=== PATIENT | female | born 1990 | race Two or more races ===

== ENCOUNTER → 2023-11-01 09:08 | Outpatient (REF) | payer BC, SELFPAY ==
[2023-11-01 10:28] LABS: ALT (SGPT) 13 U/L (0-35); AST (SGOT) 20 U/L (14-36); Alkaline Phosphatase 79 U/L (38-126); Blood Urea Nitrogen 11 mg/dl (7-17); Calcium 9.6 mg/dl (8.4-10.2); Carbon Dioxide 22 mmol/L (22-30); Chloride 103 mmol/L (98-107); Glucose 82 mg/dl (70-99); HDL Cholesterol 42 mg/dl; LDL Cholesterol, Calculated 88 mg/dl; Potassium 4.5 mmol/L (3.5-5.1); Sodium 137 mmol/L (135-145); Total Bilirubin 0.7 mg/dl (0.2-1.3); Total Cholesterol 155 mg/dl (50-199); Total Protein 7.1 g/dl (6.3-8.2); Triglyceride 127 mg/dl (10-149); Very Low Density Lipoprotein 25 mg/dl (0-30); eGFR > 60.00
[2023-11-01 11:37] LABS: Free T4 1.35 ng/dl (0.78-2.19); Vitamin D, 25-OH*** 24.7 ng/mL (30-80)
[2023-11-01 11:51] LABS: TSH 1.53 uIU/ml (0.47-4.68)
[2023-11-01 12:13] LABS: Glycohemoglobin (HgbA1c) 5.2 % (4.0-5.6)
[2023-11-03 05:41] LABS: Total T3 (Sendout) 105 ng/dL (80-200)
== END ==
LOC: REG 09:08
PROVIDERS: ATTENDING PHYSICIAN Internal Medicine Endocrinology, Diabetes & Metabolism; FAMILY PHYSICIAN Internal Medicine
DX: E03.9 Hypothyroidism, unspecified (principal); E55.9 Vitamin D deficiency, unspecified; R73.03 Prediabetes; E78.5 Hyperlipidemia, unspecified; K74.01 Hepatic fibrosis, early fibrosis; R53.83 Other fatigue
CPT/HCPCS: 36415; 80053; 80061; 82306; 83036; 84439; 84443; 84480; 84481

== ENCOUNTER → 2023-11-08 14:45 | Outpatient (REF) | payer BC, SELFPAY | LOC: HWRAD 14:45 | PROVIDERS: ATTENDING PHYSICIAN Surgery Plastic and Reconstructive Surgery; FAMILY PHYSICIAN Internal Medicine; REFERRING PHYSICIAN Surgery | DX: K43.9 Ventral hernia without obstruction or gangrene (principal) | CPT/HCPCS: 74177; Q9967 ==

== ENCOUNTER → 2024-01-25 09:44 | Outpatient (REF) | payer BC, SELFPAY ==
[2024-01-25 12:51] LABS: ALT (SGPT) 22 U/L (0-35); AST (SGOT) 24 U/L (14-36); Albumin 4.5 g/dl (3.5-5.0); Alkaline Phosphatase 83 U/L (38-126); Blood Urea Nitrogen 11 mg/dl (7-17); Calcium 9.9 mg/dl (8.4-10.2); Carbon Dioxide 21 mmol/L (22-30); Chloride 107 mmol/L (98-107); Free T3 2.88 pg/ml (2.77-5.27); Free T4 1.32 ng/dl (0.78-2.19); Glucose 64 mg/dl (70-99); HDL Cholesterol 42 mg/dl; LDL Cholesterol, Calculated 80 mg/dl; Potassium 4.5 mmol/L (3.5-5.1); Sodium 138 mmol/L (135-145); Total Bilirubin 0.7 mg/dl (0.2-1.3); Total Cholesterol 144 mg/dl (50-199); Total Protein 7.9 g/dl (6.3-8.2); Triglyceride 113 mg/dl (10-149); Very Low Density Lipoprotein 22 mg/dl (0-30); Vitamin D, 25-OH*** 26.8 ng/mL (30-80); eGFR > 60.00
[2024-01-25 13:03] LABS: TSH 2.17 uIU/ml (0.47-4.68)
[2024-01-25 14:35] LABS: Glycohemoglobin (HgbA1c) 5.1 % (4.0-5.6)
== END ==
LOC: REG 09:44
PROVIDERS: ATTENDING PHYSICIAN Internal Medicine Endocrinology, Diabetes & Metabolism; FAMILY PHYSICIAN Internal Medicine; REFERRING PHYSICIAN Surgery Plastic and Reconstructive Surgery
DX: E03.9 Hypothyroidism, unspecified (principal); E55.9 Vitamin D deficiency, unspecified; R73.03 Prediabetes; E78.5 Hyperlipidemia, unspecified; R74.01 Elevation of levels of liver transaminase levels; R53.83 Other fatigue
CPT/HCPCS: 36415; 80053; 80061; 82306; 83036; 84439; 84443; 84481

== ENCOUNTER → 2024-03-13 08:18 | Outpatient (REF) | payer BC, SELFPAY ==
[2024-03-13 09:35] LABS: % Basophils 0.4 % (0-2); % Eosinophils 1.2 % (0-6); % Immature Granulocytes 1.7 % (0-0.5); % Lymphocytes 28.2 % (20.5-51.1); % Monocytes 5.2 % (1.7-9.3); % Neutrophils 63.3 % (42.2-75.2); Absolute Basophils 0.1 10^3/uL (0-0.2); Absolute Eosinophils 0.2 10^3/uL (0-0.7); Absolute Immature Granulocytes 0.2 10^3/uL (0-0.05); Absolute Lymphocytes 3.4 10^3/uL (1.2-3.4); Absolute Monocytes 0.6 10^3/uL (0.1-0.6); Absolute Neutrophils 7.7 10^3/uL (1.4-6.5); Hematocrit 40.7 % (37.0-47.0); Hemoglobin 13.2 g/dL (12.0-16.0); Mean Corp Hgb Conc. 32.4 g/dL (33.0-37.0); Mean Corpuscular Hgb 26.9 pg (27.0-31.0); Mean Corpuscular Volume 82.9 fL (81.0-99.0); Mean Platelet Volume 11.5 fL (7.4-10.4); Nucleated Red Blood Cells % 0 %; Platelet Count 315 10^3/uL (130-400); Red Blood Cell Count 4.91 10^6/uL (4.20-5.40); White Blood Cell Count 12.1 10^3/uL (4.8-10.8)
[2024-03-13 10:39] LABS: ALT (SGPT) 26 U/L (0-35); AST (SGOT) 28 U/L (14-36); Albumin 4.7 g/dl (3.5-5.0); Alkaline Phosphatase 75 U/L (38-126); Blood Urea Nitrogen 13 mg/dl (7-17); Calcium 10.3 mg/dl (8.4-10.2); Carbon Dioxide 22 mmol/L (22-30); Chloride 106 mmol/L (98-107); Glucose 72 mg/dl (70-99); Potassium 4.5 mmol/L (3.5-5.1); Sodium 139 mmol/L (135-145); Total Bilirubin 0.6 mg/dl (0.2-1.3); Total Protein 7.9 g/dl (6.3-8.2); eGFR > 60.00
== END ==
LOC: RCS 08:18
PROVIDERS: ATTENDING PHYSICIAN Surgery Plastic and Reconstructive Surgery; FAMILY PHYSICIAN Internal Medicine
DX: Z01.818 Encounter for other preprocedural examination (principal)
CPT/HCPCS: 36415; 80053; 85025; 93005

== ENCOUNTER 2024-03-26 06:21 | Day surgery (SDC) | payer SELFPAY, BC ==
[2024-03-26] VITALS (13 sets, daily range): BP systolic 35–126; BP diastolic 64–78; BMI 26.8
--- NOTE | 2024-03-26 08:45 | HP.FOC2 ---
Focused History & Physical
Chief Complaint
HPI:
Chief Complaint: Incisional hernia/umbilical hernia
HPI / Indication for Planned Procedure: Patient is a 33-year-old female recently seen in outpatient surgical evaluation secondary to a known incisional hernia. She has had a history of having undergone 3 previous C-sections most recently in February
2022. CT imaging identified umbilical and lower midline incisional hernias spanning a total vertical length of about 10 cm and horizontal width of 3 to 4 cm just to the left of midline. She presents today for scheduled operative correction of her
symptomatic hernias with concomitant abdominoplasty.
Relevant Past Medical History: Other (History of depression, previous history of UTI)
Relevant Social History: Negative
Relevant Family History: Negative
Relevant Past Surgical History: Positive for ( x 3, wisdom teeth extraction)
Review of Systems
Review of Pertinent Systems: All Systems Negative
Medication
See Medication form for detailed medications: Yes
Medication List (including Herbals & OTC):
magnesium 240 mg PO DAILY 05/16/23
tirzepatide 12.5 mg/0.5 mL subcutaneous pen injector (Mounjaro) 12.5 mg SC QWEEK 03/21/24
Medications Reviewed: Yes
Allergies and Reactions
Patient has Allergies: No
Noted Allergies and Reactions:
Allergy/AdvReac Type Severity Reaction Status Date / Time
No Known Allergies Allergy Verified 03/21/24 15:43
Pertinent Physical Exam
All Other Systems: Negative
Head/Neck: Normal
Lungs: Normal
Heart: Normal
Abdomen: Other (Soft, chronically incarcerated umbilical hernia, infraumbilical hernia down towards the pubic area with asymmetrical swelling towards the left side of midline. Easily reducible. Upper abdominal wall diastasis with excessive lower
abdominal wall skin/pannus)
Extremities: Normal
Neurological: Normal
Diagnosis / Assessment
33-year-old female with chronically incarcerated umbilical hernia, incisional hernia, rectus diastases and excess skin of the abdominal wall presenting today for scheduled operative correction of her hernias with concomitant abdominoplasty
Plan / Procedure
Open repair of umbilical/incisional hernias with mesh (retrorectus)
Anesthesia/Sedation to be done by Anesthesia Provider: Yes
[2024-03-26] MEDS: TYLENOL 1000 MG PO ×2 (10:41→20:32)
[2024-03-26] MEDS: NORMOSOL-R 1000 IV ×2 (10:48→19:31)
[2024-03-26 11:02] LABS: HCG, Urine Qualitative Screen Negative
--- NOTE | 2024-03-26 11:27 | W.SUR.PREOP ---
Pre-Operative Surgical Note
-
I have examined this patient prior to the performance of the scheduled procedure.
The patient's condition is unchanged from the time of the current History and
Physical and the patient is able to undergo the scheduled procedure.
--- NOTE | 2024-03-26 14:55 | W.IMMPOSTOP ---
Addendum entered and electronically signed by Jayden Saunders MD 03/26/24 15:10:
#[id number]
Original Note:
Surgical Immed Post Op Note
-
Primary Surgeon: Chip
Assisting Surgeon: Noman
Darryn LANDON
Pre-op Diagnosis: Incisional hernia/umbilical hernia -10 cm
Rectus diastasis
Excessive skin of the abdominal wall
Post-op Diagnosis: Incisional/umbilical hernia -9 cm
Rectus diastasis
Excessive skin of the abdominal wall
Procedure Performed: Open retrorectus mesh repair incisional/umbilical hernias
Anesthesia Type: GETA + tap block
Specimen / Cultures: None
Estimated Blood Loss: 16 mL
Complications: None immediate
Operative Findings: Significant excessive skin of the abdominal wall. 4 to 5 cm rectus diastasis. Umbilical hernia 2 cm fascial defect; incisional hernia 4 cm fascial defect. Total vertical length of hernias encompassing 9 cm including fascial
bridge between umbilical hernia defect and incisional hernia defect. Retrorectus mesh repair. Closure of posterior sheath 2-0 PDS STRATAFIX spiral x 2. Bard soft mesh 15 cm wide by 23 cm vertically. Mesh suture fixated to Dean's ligament on
right and left side with simple interrupted 2-0 Prolene suture. Anterior rectus sheath fascia closed with running continuous #1 PDS strata fix symmetric suture.
Please see Dr. Tineo's operative report for full details regarding abdominoplasty/diastases correction.
--- NOTE | 2024-03-26 18:09 | W.IMMPOSTOP ---
Surgical Immed Post Op Note
-
Primary Surgeon: KARLA Tineo MD
Assisting Surgeon:
Pre-op Diagnosis: Lipodystrophy, excessive skin and subcutaneous tissue, diastasis rectii, hernia
Post-op Diagnosis: Same
Procedure Performed: Lipoabdominoplasty with diastasis repair, neoumbilicoplasty
Anesthesia Type: General
Specimen / Cultures: None
Estimated Blood Loss: 150cc
Complications: None
Operative Findings: As expected
--- NOTE | 2024-03-26 18:11 | OR.RPT ---
Operative Report
Operative Report
date of surgery: 03/26/2024
Surgeon: KARLA Tineo MD
Preoperative diagnosis: Lipodystrophy, rectus diastases, ventral hernia, excessive skin and subcutaneous tissue
Postoperative diagnosis: Same
Procedure:
1. Insurance based Panniculectomy
2. Rectus plication, diastases repair
3. liposuction to the lateral flanks
4. Jag umbilical plasty
anesthesia: General
Complications: None
EBL: 100 cc
Indications for procedure: Patient is a 33-year-old female with a history of at bedtime, prior , ventral hernia, massive weight loss, overhanging abdominal pannus. She presented for concerns over the appearance of her abdomen and desired
body contouring as well as abdominal hernia repair. CT scan was performed was confirmed she had both a umbilical and infraumbilical ventral hernia at the midline. Plan was made for concurrent open hernia repair. She obtained approval for
insurance based panniculectomy to remove excessive skin of the lower abdomen. Furthermore she desired cosmetic rectus plication and liposuction to the flanks with jag umbilicoplasty. conversation about the risk and benefits were had and included
the risk of hematoma, seroma, recurrent skin laxity, recurrent hernia, delayed wound healing, infection and DVT PE. she desired to proceed and consented accordingly.
Procedure in detail: Patient was identified preoperatively and the infraumbilical panniculectomy was marked out with extension to the lateral flanks. Normal anatomical landmarks were delineated for contouring, midline plication, creation of a new
umbilicus. All questions were answered and consents were confirmed. Patient was then taken back to the operating placed supine on the table. Anesthesia was induced endotracheal tube was placed. Timeout for patient safety was performed after
prepping and draping the patient in the usual sterile fashion. It was confirmed that preoperative antibiotics administered bilateral SCDs were in place. Procedure began with both Dr. Saunders from general surgery and myself making the inferior
incision and dissecting out the hernia sac. Dissection continued along the abdominal wall fascia delineating 2 ventral defects. Dissection continued superiorly to the level of the xiphoid raising large skin flaps. At this point Dr. Saunders
performed an open retrorectus mesh repair of the hernias. His operative report will be dictated separately. After completion of the hernia repair, I reentered the procedure and performed a midline plication. This was done with a series of #1 and
0 PDS suture. This was required in the midline as well as right lower quadrant due to eventration or bulge. Following this I performed bilateral tap blocks using dilute half percent Marcaine. The skin was then redraped with the patient flexed at
the waist and the panniculectomy was performed after remarking the superior extent of skin excision. 2 drains were placed along the abdominal wall fascia. The wound was then closed in layers with 2-0 Vicryl followed by INSORB stapler and 3-0
Monocryl. Prior to closure the new position of the umbilicus was marked out. The prior umbilicus was excised with the panniculectomy given the skin redundancy. The new umbilicus was performed in a Saad fashion using a butterfly shaped X
incision at the level of the ASIS bilaterally. The skin flaps were then affixed to the abdominal wall using 4-0 PDS suture. 5-0 fast gut were placed superficially. Following closure tumescent solution, 2 L, consisting of 1 L of normal saline and
50ml 1% lidocaine with 1 amp of epi were distributed over the anterior abdominal wall and flanks. Liposuction was then performed for contouring. A total of 700 cc of Lipo aspirate was removed. Patient tolerated the procedure well was performed
without complication. All counts were correct at the end the case. The dressings were placed consisting of bacitracin, dry gauze, Tegaderm. Abdominal binder was placed overlying. She was extubated taken the PACU for further care.
[2024-03-26] MEDS: DILAUDID 0.25 MG IV (19:15)
--- NOTE | 2024-03-26 20:15 | PTCARENOTE ---
Pt. arriving to [facility] via bed from PACU around 1999 and surgical sites checked with offgoing PACU nurse at the bedside. Pt. A&Ox3, drowsy but arousable to verbal stimuli, in NAD, even and unlabored breathing on 4L NC, and VSS. Pt. oriented to room
and unit policies, call light within reach, belongings within reach, bed locked and in lowest position, side rails in place, and questions answered at time of assessment. Pt. set up to eat clear liquid tray. Will continue to monitor.
--- NOTE | 2024-03-26 20:24 | SUR.PHASEI ---
1930 - patient initially sedate in pacu - visited by Dr Tineo and . dressing checked Q15min - minimal serosanguineous drainage on low horizontal dressing , umbilical dressing dry and intact. binder kept in place, SNEHAL's emptied for
serosanguineous drainage, Nava discontinued on arrival to PACU per Dr Tineo. medicated x1 with dilaudid 0.25mg for pain - with relief. patient sensitive to dilaudid with drop in sats. keep O2 on at this time. transfered to [address] [place] [address] when bed
available. handoff at bedside.
[2024-03-26] MEDS: MYLICON 80 MG PO (20:32)
[2024-03-26] MEDS: ULTRAM 100 MG PO (20:41)
[2024-03-26] MEDS: VALIUM 5 MG PO (20:42)
[2024-03-26] MEDS: ANCEF 5 IV (23:09)
[2024-03-27] MEDS: TYLENOL 1000 MG PO ×3 (02:02→13:13)
[2024-03-27] MEDS: MYLICON 80 MG PO (02:02)
[2024-03-27] MEDS: ANESTHETIC LOZENGE 1 LOZENGE PO (02:16)
[2024-03-27] MEDS: ULTRAM 100 MG PO ×2 (02:35→08:48)
[2024-03-27 03:00] VITALS: BP 99/63
[2024-03-27] MEDS: NORMOSOL-R 1000 IV (05:31)
[2024-03-27] MEDS: ANCEF 5 IV (06:11)
[2024-03-27 07:49] VITALS: BP 110/67
--- NOTE | 2024-03-27 08:02 | W.PN.GS2 ---
Addendum entered and electronically signed by Jayden Saunders MD 03/27/24 11:48:
Patient seen in follow-up with residents. Agree with documented progress note.
Patient reports adequate pain control postoperatively. No nausea. Tolerated some breakfast.
AF VSS -mild symptomatic hypotension overnight improved
ABD: Abdominal binder in place, plastics just evaluated the surgical sites so did not remove. JPs with serosanguineous fluid
Assessment/plan: 33-year-old female POD #1 status post open retrorectus mesh repair umbilical/incisional hernias
Multimodal pain control options
Okay for discharge from surgical standpoint, advised regarding dietary resumption postoperatively
Patient will be initially following up with plastics for drain management and incision check
Follow-up with myself in 2 to 4 weeks for general surgical postop
Original Note:
Today's Communication / Plan
-
Full Code
Assessment / Plan
-
ASSESSMENT:
POD#1 Status Post Incisional / Umbilical Hernia Repair W. Rectus Diastasis Repair and Abdominoplasty.
PLAN:
Slowly advance diet/ small/frequent portions
Continue to monitor Bilateral SNEHAL Drainage - Quantity/Quality
F/U Outpt. W. Plastics team in 2-4 Weeks
Stable for D/C Home per the Plastics Team
Subjective Data
-
Date of Service: March 27, 2024
Patient was seen/evaluated this morning at bedside.
No acute O/N Events
Feeling well/No complains
Pt stated pain is well-controlled, 12/25 this morning
Currently taking PRN-Pain analgesia medications
Passing Flatus / Denies any BM at this time
No N/V
Objective Data
-
Intake and Output
03/26/24 03/27/24 03/28/24
06:59 06:59 06:59
Intake Total 840 / 840
Output Total 540 / 540
Balance 300 / 300
Intake:
Oral fluids 640 / 640
IV fluids (Total) 200 / 200
normosol 200 / 200
Output:
Drain Output (Total) 440 / 440
Abdomen Awais-Morocho 195 / 195
Left Abdomen Awais-Morocho 245 / 245
Urine, Nava 100 / 100
Other:
Number of approximated MODERATE 2
amounts of urine
Vital Signs
Temp Pulse Resp BP Pulse Ox
36.6 C 66 18 110/67 97
03/27/24 07:49 03/27/24 07:49 03/27/24 07:49 03/27/24 07:49 03/27/24 07:49
Physical Exam
-
VITALS: Stable
No fevers nor increase in HR O/N
Mild transient Hypotension of 99/63 was noted around 3 AM today (Currently Resolved BP - 110/67 at 7 AM)
SPO2 -97% at R.A.
RR - 18
HR - 67
PHYSICAL:
AAOx3 / NAD
Abdominal Binder in Place
L-SNEHAL Drain ~ Sanguinous 25cc this morning / ~ 200cc O/N (Per Patient)
ABD - Soft/Non-Distended, No Rebound, Rigidity or Guarding
--- NOTE | 2024-03-27 08:44 | W.PN.PLAS ---
Today's Communication
-
discharge to home
Progress Note
Subjective Data
doing well, denies shortness of breath
Subjective: Tolerating Regular Diet, Ambulatory, Nava Removed and Patient Voided
Objective Data
Vital Signs
Temp Pulse Resp BP Pulse Ox
97.8 F 66 18 110/67 97
03/27/24 07:49 03/27/24 07:49 03/27/24 07:49 03/27/24 07:49 03/27/24 07:49
physical exam: No acute distress
No increased work of breathing
Abdominal binder in place
SNEHAL drain serosanguineous with appropriate output
Incision intact with dressings in place
No undrained fluid collections
Intake and Output
03/26/24 03/27/24 03/28/24
06:59 06:59 06:59
Intake Total 840 / 840
Output Total 540 / 540
Balance 300 / 300
Intake:
Oral fluids 640 / 640
IV fluids (Total) 200 / 200
normosol 200 / 200
Output:
Drain Output (Total) 440 / 440
Abdomen Awais-Morocho 195 / 195
Left Abdomen Awais-Morocho 245 / 245
Urine, Nava 100 / 100
Other:
Number of approximated MODERATE 2
amounts of urine
Assessment / Plan
status post open hernia repair with retro rectus mesh placement, fascial plication, Lipo abdominoplasty
doing well
Tolerating regular diet
Ambulatory
Voiding
Pain well-controlled on p.o. meds
Drain teaching
Abdominal binder
SCDs
--- NOTE | 2024-03-27 08:50 | W.DCSUMMARY ---
Discharge Summary
Discharge Data
Date of Admission: 03/26/24
Date of Discharge: 03/27/24
-
Pending Results: No
Hospital Course
s/p hernia repair and abdominoplasty
Routine postoperative course
Regular diet, pain well controlled, voiding, ambulatory on discharge.
Home with VN and short term follow up
Discharge Plan
-
Patient Disposition: Home (Routine Discharge)
Discharge Diagnosis/Procedures: s/p open hernia repair and abdominoplasty
Condition: Good
Diet: As tolerated
Activity: No strenuous activity
Driving Restrictions: Not until seen by your Dr
Bathing Restrictions: OK to Shower
Other Services: VN
Wound Care: Soap and water, aquaphor, dry ABD pads, abdominal binder. Remove dressing if wet.
Referrals:
UNKNOWN - PT NOT,INTERVIEWE [Family Provider] -
Prescriptions:
New
tramadol 50 mg Tablet
50 - 100 mg PO Q6HPRN PRN (Reason: MODERATE PAIN) 14 Days Qty: 30 0RF
acetaminophen [Tylenol Extra Strength] 500 mg Tablet
1,000 mg PO Q6H 30 Days Qty: 240 1RF
diazepam 5 mg Tablet
5 mg PO TIDPRN PRN (Reason: muscle spasms) 14 Days Qty: 42 0RF
Continued
magnesium 240 MG tablet
240 mg PO DAILY
Mounjaro 12.5 mg/0.5 mL Pen Injector
12.5 mg SC QWEEK
Rx Instructions:
Weight loss and pre diabetes
Discharge Orders:
Discharge Patient (As Directed); Ordered 03/27/24
Ordered By: Bro Tineo
Discharge Date and Time
Print Language: SAMI
--- NOTE | 2024-03-27 10:15 | CM ---
Initial assessment completed with . Patient was sleeping soundly. is a physician at . Patient lives with her and 3 small children in a 2 story home with basement and 3 steps to enter, B/B on 1st and 2nd floor, No DME or
in-home services. [employer] patient was independent, drove and worked FT in the home. No history of psychiatric hospitalizations. Pharmacy is [facility] and PCP is Dr. Helena Adame. Patient needs wound care and has 2 drains. Will set up HH VN
services. Preference is HH.
[2024-03-27 11:17] VITALS: BP 139/75
[2024-03-27 12:17] LABS: Glucose - Point of Care 130 mg/dl (70-99)
--- NOTE | 2024-03-27 14:38 | CM ---
Patient has been medically cleared for discharge to home with [facility] services for wound and drain care. transport home.
== END 2024-03-27 13:53 | disposition home or self-care (01) ==
LOC: COSMETIC 06:21
PROVIDERS: Surgery; ATTENDING PHYSICIAN Surgery Plastic and Reconstructive Surgery
DX: Z41.1 Encounter for cosmetic surgery (principal); K43.2 Incisional hernia without obstruction or gangrene; K42.0 Umbilical hernia with obstruction, without gangrene; L98.7 Excessive and redundant skin and subcutaneous tissue; E88.1 Lipodystrophy, not elsewhere classified; M62.08 Separation of muscle (nontraumatic), other site
CPT/HCPCS: 49593; 15877; 15830; 15847; 81025; 82962; C1729; C1781

== ENCOUNTER → 2024-05-22 08:35 | Outpatient (REF) | payer BC, SELFPAY ==
[2024-05-22 11:40] LABS: ALT (SGPT) < 10 U/L (0-35); AST (SGOT) 17 U/L (14-36); Albumin 4.4 g/dl (3.5-5.0); Alkaline Phosphatase 65 U/L (38-126); Blood Urea Nitrogen 12 mg/dl (7-17); Calcium 9.6 mg/dl (8.4-10.2); Carbon Dioxide 24 mmol/L (22-30); Chloride 105 mmol/L (98-107); Glucose 68 mg/dl (70-99); HDL Cholesterol 44 mg/dl; LDL Cholesterol, Calculated 91 mg/dl; Microalbumin, Random Urine 2.3 mg/dl (0.6-1.7); Microalbumin/creatinine Ratio 11.2 mg/g; Potassium 4.4 mmol/L (3.5-5.1); Sodium 142 mmol/L (135-145); Total Bilirubin 0.4 mg/dl (0.2-1.3); Total Cholesterol 160 mg/dl (50-199); Total Protein 7.2 g/dl (6.3-8.2); Triglyceride 125 mg/dl (10-149); Very Low Density Lipoprotein 25 mg/dl (0-30); eGFR > 60.00
[2024-05-22 11:45] LABS: Glycohemoglobin (HgbA1c) 4.7 % (4.0-5.6)
[2024-05-22 12:05] LABS: Free T3 2.69 pg/ml (2.77-5.27); Free T4 1.11 ng/dl (0.78-2.19); Vitamin D, 25-OH*** 13.7 ng/mL (30-80)
== END ==
LOC: REG 08:35
PROVIDERS: ATTENDING PHYSICIAN Physician Assistant Medical; FAMILY PHYSICIAN Internal Medicine; REFERRING PHYSICIAN Surgery Plastic and Reconstructive Surgery
DX: E78.5 Hyperlipidemia, unspecified (principal); R53.83 Other fatigue; E03.9 Hypothyroidism, unspecified; E55.9 Vitamin D deficiency, unspecified; R80.9 Proteinuria, unspecified; R73.03 Prediabetes
CPT/HCPCS: 36415; 80053; 80061; 82043; 82306; 82570; 83036; 84439; 84443; 84481

== ENCOUNTER → 2024-07-11 14:36 | Outpatient (REF) | payer BC, SELFPAY | LOC: RAD 14:36 | PROVIDERS: ATTENDING PHYSICIAN Internal Medicine; FAMILY PHYSICIAN Internal Medicine | DX: R06.02 Shortness of breath (principal) | CPT/HCPCS: 71275; Q9967 ==

== ENCOUNTER → 2024-08-25 08:35 | Outpatient (REF) | payer BC, SELFPAY ==
[2024-08-25 10:38] LABS: ALT (SGPT) 12 U/L (0-35); AST (SGOT) 16 U/L (14-36); Albumin 4.5 g/dl (3.5-5.0); Alkaline Phosphatase 53 U/L (38-126); Blood Urea Nitrogen 13 mg/dl (7-17); Carbon Dioxide 24 mmol/L (22-30); Chloride 108 mmol/L (98-107); Glucose 70 mg/dl (70-99); HDL Cholesterol 43 mg/dl; LDL Cholesterol, Calculated 98 mg/dl; Potassium 4.4 mmol/L (3.5-5.1); Sodium 142 mmol/L (135-145); Total Bilirubin 0.6 mg/dl (0.2-1.3); Total Cholesterol 159 mg/dl (50-199); Total Protein 7.5 g/dl (6.3-8.2); Triglyceride 92 mg/dl (10-149); Very Low Density Lipoprotein 18 mg/dl (0-30); eGFR > 60.00
[2024-08-25 10:47] LABS: Free T3 3.03 pg/ml (2.77-5.27); Free T4 1.28 ng/dl (0.78-2.19); Vitamin D, 25-OH*** 24.2 ng/mL (30-80)
[2024-08-25 11:00] LABS: TSH 3.84 uIU/ml (0.47-4.68)
[2024-08-25 11:14] LABS: Glycohemoglobin (HgbA1c) 4.9 % (4.0-5.6)
[2024-08-26 19:42] LABS: Thyroid Peroxidase Ab (TPO) 0.4 IU/mL (0.0-9.0)
== END ==
LOC: REG 08:35
PROVIDERS: ATTENDING PHYSICIAN Internal Medicine Endocrinology, Diabetes & Metabolism; FAMILY PHYSICIAN Internal Medicine
DX: E55.9 Vitamin D deficiency, unspecified (principal); E03.9 Hypothyroidism, unspecified; R73.03 Prediabetes; E78.5 Hyperlipidemia, unspecified; R74.01 Elevation of levels of liver transaminase levels; R53.83 Other fatigue
CPT/HCPCS: 36415; 80053; 80061; 82306; 83036; 84439; 84443; 84481; 86376

== ENCOUNTER → 2025-01-26 08:42 | Outpatient (REF) | payer BC, SELFPAY ==
[2025-01-26 10:17] LABS: ALT (SGPT) 15 U/L (0-35); AST (SGOT) 18 U/L (14-36); Albumin 4.8 g/dl (3.5-5.0); Alkaline Phosphatase 40 U/L (38-126); Blood Urea Nitrogen 14 mg/dl (7-17); Calcium 9.4 mg/dl (8.4-10.2); Carbon Dioxide 24 mmol/L (22-30); Chloride 108 mmol/L (98-107); Glucose 76 mg/dl (70-99); Potassium 4.6 mmol/L (3.5-5.1); Sodium 142 mmol/L (135-145); Total Bilirubin 0.5 mg/dl (0.2-1.3); Total Protein 7.6 g/dl (6.3-8.2); eGFR > 60.00
[2025-01-26 10:33] LABS: Free T4 1.15 ng/dl (0.78-2.19); Vitamin D, 25-OH*** 26.5 ng/mL (30-80)
[2025-01-26 10:35] LABS: Free T3 2.97 pg/ml (2.77-5.27)
[2025-01-26 10:46] LABS: TSH 3.04 uIU/ml (0.47-4.68)
[2025-01-27 15:29] LABS: Thyroid Peroxidase Ab (TPO) 0.4 IU/mL (0.0-9.0)
== END ==
LOC: REG 08:42
PROVIDERS: ATTENDING PHYSICIAN Internal Medicine Endocrinology, Diabetes & Metabolism
DX: E55.9 Vitamin D deficiency, unspecified (principal); E03.9 Hypothyroidism, unspecified; R73.03 Prediabetes; R74.01 Elevation of levels of liver transaminase levels; R53.83 Other fatigue
CPT/HCPCS: 36415; 80053; 82306; 83036; 84439; 84443; 84481; 86376

== ENCOUNTER → 2025-03-30 11:53 | Outpatient (REF) | payer BC, SELFPAY ==
[2025-03-30 13:12] LABS: Hematocrit 37.9 % (37.0-47.0); Hemoglobin 12.2 g/dL (12.0-16.0); Mean Corp Hgb Conc. 32.2 g/dL (33.0-37.0); Mean Corpuscular Volume 86.9 fL (81.0-99.0); Nucleated Red Blood Cells % 0 %; Platelet Count 248 10^3/uL (130-400); Red Cell Dist. Width 13.7 % (11.5-14.5)
== END ==
LOC: REG 11:53
PROVIDERS: ATTENDING PHYSICIAN Surgery Plastic and Reconstructive Surgery; FAMILY PHYSICIAN Internal Medicine
DX: Z01.818 Encounter for other preprocedural examination (principal)
CPT/HCPCS: 36415; 85025; 93005